=== PATIENT | male | born 1975 | race Caucasian/White ===

== ENCOUNTER 2025-04-21 06:28 | Day surgery (SDC) | payer BC, SELFPAY | END 2025-04-21 08:50 | disposition home or self-care (01) | LOC: GI 06:28 | PROVIDERS: ATTENDING PHYSICIAN Internal Medicine Gastroenterology | DX: Z12.11 Encounter for screening for malignant neoplasm of colon (principal); D12.2 Benign neoplasm of ascending colon; Z86.0101 Personal history of adenomatous and serrated colon polyps | CPT/HCPCS: 45385; 88305 ==